=== PATIENT | male | born 1940 | race African-American/Black ===

== ENCOUNTER 2017-08-02 17:37 | Emergency (ER) | payer MEDICARE, MEDICAID ==
[~2017-08-02] VITALS: Ht 177.8 cm; Wt 74.0 kg
[2017-08-02] MEDS ORDERED: DIATR MEGLU/DIATRIZOATE SOLN 30ML GT ONE (22:00)
[2017-08-02] MEDS ORDERED: DIATR MEGLU/DIATRIZOATE SOLN 30ML ONE (23:03)
[2017-08-03 02:59] VITALS: BP 120/58
== END 2017-08-03 03:00 ==
LOC: EDBD → ER 17:47
DX: Z43.1 Encounter for attention to gastrostomy (principal); D64.9 Anemia, unspecified; F32.9 Major depressive disorder, single episode, unspecified; E78.00 Pure hypercholesterolemia, unspecified; I10 Essential (primary) hypertension; R56.9 Unspecified convulsions; I25.2 Old myocardial infarction; Z93.1 Gastrostomy status
CPT/HCPCS: 43760; 74018; 99285; Q9963

== ENCOUNTER 2017-08-03 13:02 | Emergency (ER) | payer MEDICARE, MEDICAID ==
[~2017-08-03] VITALS: Ht 185.4 cm; Wt 81.0 kg
[2017-08-03] MEDS ORDERED: DIATR MEGLU/DIATRIZOATE SOLN 30ML ONE (16:27)
[2017-08-03 17:40] VITALS: BP 111/62
== END 2017-08-03 17:52 ==
LOC: ER 13:02
DX: Z43.1 Encounter for attention to gastrostomy (principal); I10 Essential (primary) hypertension; F03.90 Unspecified dementia, unspecified severity, without behavioral disturbance, psychotic disturbance, mood disturbance, and anxiety; F32.9 Major depressive disorder, single episode, unspecified; E78.00 Pure hypercholesterolemia, unspecified; I25.2 Old myocardial infarction
CPT/HCPCS: 74018; 99285; Q9963

== ENCOUNTER 2017-08-04 11:03 | Emergency (ER) | payer MEDICARE, MEDICAID ==
[~2017-08-04] VITALS: Ht 180.3 cm; Wt 75.0 kg
[2017-08-04 11:05] VITALS: BP 108/58
== END 2017-08-04 12:33 | disposition home or self-care (01) ==
LOC: ER 11:03
DX: K94.23 Gastrostomy malfunction (principal); I10 Essential (primary) hypertension; E78.00 Pure hypercholesterolemia, unspecified; F32.9 Major depressive disorder, single episode, unspecified; I25.2 Old myocardial infarction
CPT/HCPCS: 99283

== ENCOUNTER 2017-08-16 10:35 | Emergency (ER) | payer MEDICARE, MEDICAID ==
[~2017-08-16] VITALS: Ht 180.3 cm; Wt 66.0 kg
[2017-08-16] MEDS ORDERED: DIATR MEGLU/DIATRIZOATE SOLN 30ML ONE (14:38)
[2017-08-16] MEDS ORDERED: LIDOCAINE HCL 2% JELLY 5ML ONE (15:01)
[2017-08-16 16:33] VITALS: BP 129/74
== END 2017-08-16 17:50 ==
LOC: ER 11:15
DX: Z43.1 Encounter for attention to gastrostomy (principal); Z43.4 Encounter for attention to other artificial openings of digestive tract; I10 Essential (primary) hypertension; F32.9 Major depressive disorder, single episode, unspecified; E78.00 Pure hypercholesterolemia, unspecified; F03.90 Unspecified dementia, unspecified severity, without behavioral disturbance, psychotic disturbance, mood disturbance, and anxiety; D64.9 Anemia, unspecified; R56.9 Unspecified convulsions; I25.2 Old myocardial infarction
CPT/HCPCS: 49450; 99285; C1725; C1769; Q9963